=== PATIENT | male | born 1940 | race Caucasian/White ===

== ENCOUNTER 2020-09-28 08:33 | Emergency (ER) | payer BC, MEDICARE ==
[2020-09-28] MEDS ORDERED: Lidocaine 1% w/Epinephrine 1:100K 20 ML VIAL ONE (09:30)
[2020-09-28] MEDS ORDERED: Triple Antibiotic Oint 1 GM Packet ONE (09:43)
[2020-09-28] MEDS ORDERED: Bacitracin 1 PK ONE (10:10)
[2020-09-28] MEDS ORDERED: Boostrix 0.5 ML (Tdap) VIAL ONE (10:42)
== END 2020-09-28 11:38 | disposition home or self-care (01) ==
LOC: CSHERS 08:33
DX: S01.112A Laceration without foreign body of left eyelid and periocular area, initial encounter (principal); Z23 Encounter for immunization; W01.0XXA Fall on same level from slipping, tripping and stumbling without subsequent striking against object, initial encounter
CPT/HCPCS: 12013; 70450; 90471; 90715

== ENCOUNTER 2022-07-30 08:10 | Outpatient (CLI) | payer MEDICARE, BC | END 2022-07-30 08:11 | disposition home or self-care (01) | LOC: CSHWCC 08:10 | PROVIDERS: ATTEND Nurse Practitioner Family | DX: I10 Essential (primary) hypertension (principal); G31.84 Mild cognitive impairment of uncertain or unknown etiology; J45.998 Other asthma | CPT/HCPCS: 97139; G0463; 99203 ==

== ENCOUNTER 2022-09-30 15:22 | Outpatient (CLI) | payer MEDICARE, BC | END 2022-09-30 15:23 | disposition home or self-care (01) | LOC: CSHWCC 15:22 | PROVIDERS: ATTEND Nurse Practitioner Family | DX: G31.84 Mild cognitive impairment of uncertain or unknown etiology (principal); I10 Essential (primary) hypertension; J45.998 Other asthma | CPT/HCPCS: 97139; G0277 ==